=== PATIENT | male | born 1995 | race Caucasian/White ===

== ENCOUNTER 2017-09-14 18:27 | Emergency (ER) | payer OTHER ==
[~2017-09-14] VITALS: Ht 193 cm; Wt 81.6 kg
[2017-09-14 20:10] LABS: BASOPHILS # (AUTO) 0.1 K/uL (0.0-8.0); BASOPHILS % (AUTO) 0.9 % (0.0-2.0); EOSINOPHILS # (AUTO) 0.1 K/uL (0.0-0.7); HEMATOCRIT 40.3 % (36.7-47.1); HEMOGLOBIN 14.1 g/dL (12.5-16.3); LYMPHOCYTES # (AUTO) 1.3 K/uL (20.0-40.0); LYMPHOCYTES % (AUTO) 17.6 % (20.5-51.5); MEAN CORPUSCULAR HGB CONC 35 g/dL (32.5-36.3); MEAN CORPUSCULAR VOLUME 88.4 fL (73.0-96.2); MONOCYTES # (AUTO) 0.7 K/uL (2.0-10.0); MONOCYTES % (AUTO) 9.8 % (0.0-11.0); NEUTROPHILS % (AUTO) 69.7 % (38.5-71.5); PLATELET COUNT (AUTO) 232 K/uL (152-348); RED BLOOD CELL COUNT(AUTO) 4.56 MIL/uL (4.06-5.63); WHITE BLOOD COUNT (AUTO) 7.1 K/uL (3.6-10.2)
[2017-09-14 20:14] LABS: CREATININE 5.2 mg/dL (0.6-1.3)
--- NOTE | 2017-09-14 20:15 | NUR ---
PT IN BED. PT'S MOTHER AT BEDSIDE. PT REPORTS 8/10 ABDOMINAL PAIN
[2017-09-14 20:20] LABS: BILIRUBIN,DIRECT 0.2 mg/dL (0.0-0.2); BILIRUBIN,TOTAL 0.9 mg/dL (0.2-1.0); TOTAL PROTEIN, SERUM 7.3 g/dL (6.4-8.2)
[2017-09-14 21:46] LABS: *BILIRUBIN,URIN NEGATIVE (NEGATIVE); *BLOOD, URINE Trace-intact (NEGATIVE); *CLARITY,URINE CLEAR (CLEAR); *COLOR,URINE YELLOW (YELLOW); *KETONES,URINE NEGATIVE (NEGATIVE); *PROTEIN,URINE NEGATIVE (NEGATIVE); *UROBILINOGEN,URINE 0.2 E.U./dl (NORMAL); LEUKOCYTE ESTERASE ,URINE NEGATIVE (NEGATIVE); NITRITE, URINE NEGATIVE (NEGATIVE); PH,URINE 5.5 (5.0-8.0); UGLUCOSE NEGATIVE (NEGATIVE)
--- NOTE | 2017-09-14 22:00 | NUR ---
MD PAIGE AT BEDSIDE DISCUSSING LAB RESULTS W/ PT
[2017-09-14] MEDS: IV NORMAL SALINE 1000 ML BAG IV ONE (22:02)
--- NOTE | 2017-09-14 23:01 | NUR ---
PT IN BED IN A POSITION OF COMFORT. PT IS A&OX4. BREATH SOUNDS ARE REGULAR AND UNLABORED. PT STATES ABDOMINAL PAIN IS TOLERABLE AT THIS TIME. NO SIGNS OF DISTRESS WITNESS.
--- NOTE | 2017-09-15 00:36 | NUR ---
PT IN BED. PT'S FAMILY AND FRIENDS AT BEDSIDE. PT DENIES ABDOMINAL PAIN AT THIS TIME. NO SIGNS OF DISTRESS WITNESSED.
--- NOTE | 2017-09-15 03:31 | NUR ---
called ambulance services on [id number] for pt transfer, eta 45 min, ref no.[id number]
--- NOTE | 2017-09-15 03:53 | NUR ---
GAVE REPORT TO NAINA BERNABE AT [facility]
--- NOTE | 2017-09-15 04:41 | NUR ---
RADILOGY WAS UNABLE TO MAKE THE CD,NAINA BERNABE MADE AWARE OF IT AND ETA FOR PT'S ARRIVAL,PT IN NO DISTRESS, P/U BY [facility]
== END 2017-09-15 04:46 | disposition short-term general hospital (02) ==
LOC: ER 18:28
DX: N17.9 Acute kidney failure, unspecified (principal); F17.210 Nicotine dependence, cigarettes, uncomplicated
CPT/HCPCS: 36415; 71045; 83690; 85025; 93005; A4663; J7030